=== PATIENT | female | born 1965 | race Caucasian/White ===

== ENCOUNTER 2017-10-19 17:15 | Emergency (ER) | payer MEDICARE ==
[~2017-10-19] VITALS: Ht 147.3 cm; Wt 63.0 kg
[2017-10-19 17:37] VITALS: BP 138/84; PULSE 99; RESP 20; TEMP 98; O2SAT 100
--- NOTE | 2017-10-19 18:46 | RADRPT ---
EXAM DATE/TIME: 10/19/2017 18:15 [place] COMPARISON: No previous studies available for comparison. INDICATIONS : Patient states chest pains. MEDICAL HISTORY : None. SURGICAL HISTORY : None. ENCOUNTER: Initial ACUITY: 1 day PAIN SCORE: 9/10 LOCATION: Bilateral chest FINDINGS: PA and lateral views of the chest demonstrate the lungs to be symmetrically aerated without evidence of mass, infiltrate or effusion. The cardiomediastinal contours are unremarkable. Osseous structure s are intact. CONCLUSION: No acute disease. Josafat Brewster MD on October 19, 2017 at 18:44 Board Certified Radiologist. This report was verified electronically.
[2017-10-19 18:57] LABS: AUTOMATED NEUTROPHIL # 5.2 TH/MM3 (1.8-7.7); BASOPHIL % 0.4 % (0.0-2.0); EOSINOPHIL # 0.2 TH/MM3 (0-0.4); EOSINOPHIL % 2.1 % (0.0-4.0); HEMATOCRIT 38.2 % (35.0-46.0); HEMOGLOBIN 12.7 GM/DL (11.6-15.3); LYMPH % 27.8 % (9.0-44.0); LYMPHOCYTE # 2.3 TH/MM3 (1.0-4.8); MEAN CELL VOLUME 82.9 FL (80.0-100.0); MEAN CORPUSCULAR HEMOGLOBIN 27.5 PG (27.0-34.0); MEAN CORPUSCULAR HGB CONC 33.2 % (32.0-36.0); MEAN PLATELET VOLUME 9.2 FL (7.0-11.0); MONO % 6.3 % (0.0-8.0); MONOCYTE # 0.5 TH/MM3 (0-0.9); NEUT % 63.4 % (16.0-70.0); PLATELET COUNT 296 TH/MM3 (150-450); RED CELL DISTRIBUTION WIDTH 14.7 % (11.6-17.2); WHITE BLOOD COUNT 8.2 TH/MM3 (4.0-11.0)
[2017-10-19 19:23] LABS: BICARBONATE 25.2 MEQ/L (21.0-32.0); CALCIUM 9.9 MG/DL (8.5-10.1); CREATININE 0.87 MG/DL (0.50-1.00)
[2017-10-19 22:00] VITALS: BP 127/84; PULSE 105; RESP 16; O2SAT 100
[2017-10-19] MEDS ORDERED: LISI10TA3 PO (22:29)
[2017-10-19] MEDS ORDERED: METF1000 PO (22:29)
[2017-10-19] MEDS ORDERED: GUAISYP4 PO (22:44)
[2017-10-19] MEDS ORDERED: RESP: IPRATROPIUM 0.5 MG/2.5 ML NEB NEB ONE (22:45)
[2017-10-19] MEDS ORDERED: AMOX250C3 PO (22:46)
--- NOTE | 2017-10-19 22:52 | PD ---
HPI Chief Complaint: Respiratory Symptoms Time Seen by Provider: 21:49 Travel History International Travel<30 days: No Contact w/Intl Traveler<30days: No Traveled to known affect area: No History of Present Illness HPI Patient is a 51-year-old female with hypertension and diabetes is coming in with 3 days of a cough dry cough feverish feeling. And now she is having upper back right-sided pain. It hurts worse with deep inspiration and coughing. She has not taken anything to alleviate her symptoms and she has not seen another doctor. She has no history of pulmonary issues no asthma no pneumonia history. She has no sick contacts she has not been checked for flu or strep she's had a sore throat dry cough and this pain in her right lung that radiates to her back per son patient speaks Tunisian. PFSH Past Medical History Diabetes: Yes Patient Takes Glucophage: Yes (METFORMIN) Hypertension: Yes Medical other: Yes ("VERTIGO") ?: Not LMP: 10/10/17 Social History Alcohol Use: No Tobacco Use: No Substance Use: No Allergies-Medications (Allergen,Severity, Reaction): Coded Allergies: No Known Allergies (Unverified , 10/19/17) Reported Meds & Prescriptions Reported Meds & Active Scripts Active Amoxicillin 250 Mg Cap 250 Mg PO TID Guaifenesin AC Liq (Guaifenesin-Codeine Liq) 100-10 Mg/5 Ml Syrp 10 Ml PO Q6H PRN Reported Metformin (Metformin HCl) 1,000 Mg Tab 1,000 Mg PO BIDPC Lisinopril 10 Mg Tab 10 Mg PO DAILY Review of Systems Except as stated in HPI: all other systems reviewed are Neg General / Constitutional: Positive: Fever, Chills Respiratory: Positive: Cough Physical Exam Narrative GENERAL: pt is awake alert non toxic appearing SKIN: Warm and dry. HEAD: Atraumatic. Normocephalic. EYES: Pupils equal and round. No scleral icterus. No injection or drainage. ENT: No nasal bleeding or discharge. Mucous membranes pink and moist. NECK: Trachea midline. No JVD. CARDIOVASCULAR: Regular rate and rhythm. RESPIRATORY: No accessory muscle use. Clear to auscultation. Breath sounds equal bilaterally. reproducible muscle tenderness to upper back GASTROINTESTINAL: Abdomen soft, non-tender, nondistended. Hepatic and splenic margins not palpable. MUSCULOSKELETAL: Extremities without clubbing, cyanosis, or edema. No obvious deformities. NEUROLOGICAL: Awake and alert. No obvious cranial nerve deficits. Motor grossly within normal limits. Five out of 5 muscle strength in the arms and legs. Normal speech. PSYCHIATRIC: Appropriate mood and affect; insight and judgment normal. Data Data Last Documented VS Vital Signs Date Time Temp Pulse Resp B/P (MAP) Pulse Ox O2 Delivery O2 Flow Rate FiO2 10/19/17 23:34 10/19/17 23:00 92 16 94 Room Air 10/19/17 17:37 98.0 Orders Orders Complete Blood Count With Diff (10/19/17 17:45) Basic Metabolic Panel (Bmp) (10/19/17 17:45) Chest, Pa & Lat (10/19/17 17:45) Electrocardiogram (10/19/17 17:45) Ipratropium Neb (Atrovent Neb) (10/19/17 22:45) Group A Rapid Strep Screen (10/19/17 22:33) Influenzae A/B Antigen (10/19/17 22:33) Strep Culture (Group A) (10/19/17 22:50) Ed Discharge Order (10/19/17 23:29) Labs Laboratory Tests Test 10/19/17 17:54 White Blood Count 8.2 TH/MM3 Red Blood Count 4.60 MIL/MM3 Hemoglobin 12.7 GM/DL Hematocrit 38.2 % Mean Corpuscular Volume 82.9 FL Mean Corpuscular Hemoglobin 27.5 PG Mean Corpuscular Hemoglobin Concent 33.2 % Red Cell Distribution Width 14.7 % Platelet Count 296 TH/MM3 Mean Platelet Volume 9.2 FL Neutrophils (%) (Auto) 63.4 % Lymphocytes (%) (Auto) 27.8 % Monocytes (%) (Auto) 6.3 % Eosinophils (%) (Auto) 2.1 % Basophils (%) (Auto) 0.4 % Neutrophils # (Auto) 5.2 TH/MM3 Lymphocytes # (Auto) 2.3 TH/MM3 Monocytes # (Auto) 0.5 TH/MM3 Eosinophils # (Auto) 0.2 TH/MM3 Basophils # (Auto) 0.0 TH/MM3 CBC Comment DIFF FINAL Differential Comment Blood Urea Nitrogen 11 MG/DL Creatinine 0.87 MG/DL Random Glucose 141 MG/DL Calcium Level 9.9 MG/DL Sodium Level 137 MEQ/L Potassium Level 4.3 MEQ/L Chloride Level 103 MEQ/L Carbon Dioxide Level 25.2 MEQ/L Anion Gap 9 MEQ/L Estimat Glomerular Filtration Rate 68 ML/MIN MDM Medical Decision Making Medical Screen Exam Complete: Yes Emergency Medical Condition: Yes Differential Diagnosis viral bronchitis vs PNA vs influenza or other causes of right chest pain cough, Narrative Course swabs negative and symptomatic treatment in ER pt feels much better safe for d.c with close follow up Rx for Amox and cough syrup Diagnosis Primary Impression: Cough Scripts Amoxicillin (Amoxicillin) 250 Mg Cap 250 MG PO TID for Infection, #21 CAP 0 Refills Prov: Randall Asif MD 10/19/17 Guaifenesin-Codeine Liq (Guaifenesin AC Liq) 100-10 Mg/5 Ml Syrp 10 ML PO Q6H Y for COUGH, #1 BOTTLE 0 Refills Prov: Randall Asif MD 10/19/17 Disposition: 01 DISCHARGE HOME Condition: Good Randall Asif MD Oct 19, 2017 22:52
[2017-10-19 23:00] VITALS: BP 132/77; PULSE 92; RESP 16; O2SAT 94
--- NOTE | 2017-10-20 12:22 | EKG ---
Date Performed: 10/19/2017 Time Performed: 17:51:13 PTAGE: 51 years EKG: Sinus rhythm NORMAL ECG INTERPRETATION BASED ON A DEFAULT AGE OF 39 YEARS NO PREVIOUS TRACING DOCTOR: Lio Lagunas Interpretating Date/Time 10/20/2017 12:18:23
== END 2017-10-19 23:39 | disposition home or self-care (01) ==
LOC: NEPE 17:15
DX: R05 Cough (principal); E11.9 Type 2 diabetes mellitus without complications; I10 Essential (primary) hypertension; Z79.84 Long term (current) use of oral hypoglycemic drugs
CPT/HCPCS: 71046; 80048; 85025; 87081; 87804; 87880; 93005; 94664; 99285; J7644

== ENCOUNTER 2018-01-20 15:57 | Observation (INO) ==
[2018-01-21] MEDS ORDERED: Insulin NovoLIN Regular Correctional Sugar Inj ONE (22:26)
[2018-01-21] MEDS ORDERED: Ketorolac Inj 30 MG/ML (IVP) Vial ONE (23:58)
[2018-01-22] MEDS ORDERED: Acetaminophen 325 MG Tablet PO PRN (02:59)
[2018-01-22] MEDS ORDERED: Dextrose 50% in Water 50 ML Vial IV.PUSH PRN (03:04)
--- NOTE | 2018-01-22 08:57 | P.PN ---
Subjective Interval history: Follow up for intractable headache. The patient reports overall feeling much better today. She states her headache has improved, although still present at the left temporal parietal region, described as a constant burning pain. She reports continued blurred vision. Denies any fevers/chills, nausea/vomiting, photophobia, chest pain, shortness of breath, or abdominal complaints. Physical Exam Vital signs: Vital Signs 01/22/18 03:57 01/22/18 08:04 01/22/18 08:12 Temperature 97.8 F 97.8 F Pulse Rate 83 71 Respiratory Rate 16 16 12 Blood Pressure 111/67 109/58 L Pulse Oximetry 98 98 Intake & Output 01/21/18 01/22/18 01/22/18 18:59 06:59 18:59 Weight 63.5 kg Narrative: GENERAL: Well-nourished, well-developed pleasant middle-aged female patient in [facility]. SKIN: Warm and dry. No rash. HEENT: Normocephalic. Atraumatic. Left temporal region nontender to palpation. Pupils equal and round. Mucous membranes pink and moist. NECK: Supple. Trachea midline. CARDIOVASCULAR: Regular rate and rhythm. No murmur appreciated. RESPIRATORY: No accessory muscle use. Clear to auscultation. Breath sounds equal bilaterally. GASTROINTESTINAL: Abdomen soft, non-tender, nondistended. Normoactive bowel sounds x4. MUSCULOSKELETAL: No obvious deformities. Extremities without clubbing, cyanosis , or edema. NEUROLOGICAL: Awake and alert. No obvious cranial nerve deficits. Motor grossly within normal limits. Moving all extremities spontaneously. Normal speech. PSYCHIATRIC: Appropriate mood and affect; insight and judgment normal. Results - Labs CBC & Chem 7: 01/20/18 12:11 01/20/18 12:11 Labs: Laboratory Results - last 24 hr 01/20/18 01/20/18 01/20/18 12:11 12:11 12:11 WBC 9.3 RBC 4.35 Hgb 12.1 Hct 37.0 MCV 85.1 MCH 27.9 MCHC 32.8 RDW 14.8 Plt Count 260 MPV 9.1 Neut % (Auto) 69.3 Lymph % (Auto) 20.3 [place] % (Auto) 8.2 H Eos % (Auto) 1.2 Baso % (Auto) 1.0 Neut # (Auto) 6.4 Lymph # (Auto) 1.9 [place] # (Auto) 0.8 Eos # (Auto) 0.1 Baso # (Auto) 0.1 CBC Comment DIFF FINAL ESR PT 10.1 INR 1.0 APTT 23.4 L Sodium 141 Potassium 4.8 Chloride 109 H Carbon Dioxide 24.5 Anion Gap 8 BUN 14 Creatinine 0.93 Estimated GFR 63 L Random Glucose 95 Calcium 9.4 Total Bilirubin 0.3 AST 20 ALT 27 Alkaline Phosphatase 77 Total Creatine Kinase 115 Troponin I LESS THAN 0.02 L C-Reactive Protein LESS THAN 0.29 Total Protein 7.6 Albumin 3.9 Vitamin B12 Free T4 TSH 3rd Generation HCG, Quant Urine Color Urine Turbidity Urine pH Ur Specific [place] Urine Protein Urine Glucose (UA) Urine Ketones Urine Occult Blood Urine Nitrite Urine Bilirubin Urine Urobilinogen Ur Leukocyte Esterase Urine RBC Urine WBC Urine WBC Clumps Urine Bacteria Micro UA Comment Rheumatoid Factor Scrn 01/20/18 01/20/18 01/20/18 12:11 12:25 21:09 WBC RBC Hgb Hct MCV MCH MCHC RDW Plt Count MPV Neut % (Auto) Lymph % (Auto) [place] % (Auto) Eos % (Auto) Baso % (Auto) Neut # (Auto) Lymph # (Auto) [place] # (Auto) Eos # (Auto) Baso # (Auto) CBC Comment ESR 31 H PT INR APTT Sodium Potassium Chloride Carbon Dioxide Anion Gap BUN Creatinine Estimated GFR Random Glucose Calcium Total Bilirubin AST ALT Alkaline Phosphatase Total Creatine Kinase Troponin I C-Reactive Protein 0.79 H Total Protein Albumin Vitamin B12 Free T4 TSH 3rd Generation HCG, Quant Urine Color YELLOW Urine Turbidity CLOUDY H Urine pH 7.0 Ur Specific [place] 1.015 Urine Protein 30 H Urine Glucose (UA) 50 Urine Ketones NEG Urine Occult Blood LARGE H Urine Nitrite NEG Urine Bilirubin NEG Urine Urobilinogen LESS THAN 2 Ur Leukocyte Esterase LARGE H Urine RBC Urine WBC Urine WBC Clumps FEW H Urine Bacteria MANY H Micro UA Comment CULTURE INDICATED Rheumatoid Factor Scrn 01/21/18 01/21/18 12:36 12:36 WBC RBC Hgb Hct MCV MCH MCHC RDW Plt Count MPV Neut % (Auto) Lymph % (Auto) [place] % (Auto) Eos % (Auto) Baso % (Auto) Neut # (Auto) Lymph # (Auto) [place] # (Auto) Eos # (Auto) Baso # (Auto) CBC Comment ESR PT INR APTT Sodium Potassium Chloride Carbon Dioxide Anion Gap BUN Creatinine Estimated GFR Random Glucose Calcium Total Bilirubin AST ALT Alkaline Phosphatase Total Creatine Kinase Troponin I C-Reactive Protein Total Protein Albumin Vitamin B12 422 Free T4 1.10 TSH 3rd Generation 0.575 HCG, Quant LESS THAN 1 Urine Color Urine Turbidity Urine pH Ur Specific [place] Urine Protein Urine Glucose (UA) Urine Ketones Urine Occult Blood Urine Nitrite Urine Bilirubin Urine Urobilinogen Ur Leukocyte Esterase Urine RBC Urine WBC Urine WBC Clumps Urine Bacteria Micro UA Comment Rheumatoid Factor Scrn NEGATIVE - Imaging Imaging: Last Impressions Head CT 01/20/18 1154 Signed Impressions: CONCLUSION: 1. No acute intracranial abnormality. Chest X-Ray 01/20/18 115 Signed Impressions: CONCLUSION: Negative for acute process Assessment and Plan - Plan 52-year-old female with history of hypertension and diabetes presents with intractable left-sided headache Left-sided headache: Possible temporal arteritis vs trigeminal neuralgia. ESR mildly elevated at 31, and CRP 0.79. -Head CT reviewed, no acute findings -Brain MRI reviewed and unremarkable -General surgery consulted, plans for temporal artery biopsy on Tuesday 01/23 -Continue prednisone 50 mg daily -Pain control with tylenol and IV toradol prn -Consult neurology, appreciate recommendations, possible trigeminal neuralgia variant Left eye vision impairment: acute. Possibly secondary to temporal arteritis versus diabetes versus nonspecific ocular process -consult ophthalmology, reportedly no coverage in house until Tuesday 01/23 Diabetes Mellitus: chronic -hold patient's metformin for now -monitor Accu-checks and cover with SSI Hypertension: chronic, BP fairly well controlled -continue patient's lisinopril 10mg daily -monitor BP, adjust antihypertensives as needed ESBL UTI: UA with UTI. Patient asymptomatic. WBC 9.3K. -Urine culture with E.Coli, ESBL positive -Discontinue IV Rocephin -Call placed to ID for antibiotic recommendations DVT Prophylaxis: teds/SCDs; avoid chemoprophylaxis with upcoming procedure Discharge Planning: Plan for temporal artery biopsy tomorrow. Discharge pending further clinical improvement and clearance from neurology. Also need recommendations on antibiotics for ESBL positive UTI.
[2018-01-22] MEDS ORDERED: carBAMazepine 100 MG Chewable Tablets PO SCH (09:00)
[2018-01-22] MEDS: Insulin NovoLIN Regular Correctional Sugar Inj SQ SCH ×4 (09:27→21:17)
--- NOTE | 2018-01-22 13:33 | P.PNNEU ---
Subjective Subjective Comments: pain better on cbz she rates about 6/10 now Active Medications: Active Medications Generic Name Dose Route Start Last Admin Trade Name Freq PRN Reason Stop Dose Admin Acetaminophen 650 mg 01/22/18 02:59 Tylenol PO Q6H PRN headache/fever/pain1-4 Carbamazepine 100 mg 01/22/18 09:00 01/22/18 09:16 Tegretol Chewable PO 100 mg Q12HR FEDERICA Administration Dextrose 50 ml 01/22/18 03:04 D50w Vial IV.PUSH UNSCH PRN PER HYPOGLYCEMIA PROTOCOL Glucagon 1 mg 01/22/18 03:04 Glucagon Inj OTHER PRN PRN for Hypoglycemia Protocol Ceftriaxone Sodium 1,000 mg/ 100 mls @ 200 mls/hr 01/22/18 16:00 Sodium Chloride IV.SIG Q24H FEDERICA Insulin Human Regular 0 units 01/22/18 08:00 01/22/18 09:27 Novolin R Supplemental Scale SQ 1 units ACHS FEDERICA Administration Protocol Ketorolac Tromethamine 15 mg 01/22/18 03:00 Toradol Inj IV.PUSH 01/26/18 09:59 Q6H PRN PAIN 5-10 Lisinopril 10 mg 01/22/18 09:00 Prinivil PO DAILY [facility] Prednisone 50 mg 01/22/18 09:00 01/22/18 09:16 Deltasone PO 50 mg DAILY FEDERICA Administration Allergies/Adverse Reactions: Allergies Allergy/AdvReac Type Severity Reaction Status Date / Time No Known Allergies Allergy Unverified 01/20/18 11:52 Physical Exam Vital signs: Vital Signs 01/22/18 03:57 01/22/18 08:04 01/22/18 08:12 Temperature 97.8 F 97.8 F Pulse Rate 83 71 Respiratory Rate 16 16 12 Blood Pressure 111/67 109/58 L Pulse Oximetry 98 98 01/22/18 12:00 Temperature 97.9 F Pulse Rate 100 H Respiratory Rate 18 Blood Pressure 120/68 Pulse Oximetry 96 Intake & Output 01/21/18 01/22/18 01/22/18 18:59 06:59 18:59 Weight 63.5 kg Narrative: alert nad temples nontender bilat Objective Laboratory Results - last 24 hr 01/20/18 01/20/18 01/20/18 12:11 12:11 12:11 WBC 9.3 RBC 4.35 Hgb 12.1 Hct 37.0 MCV 85.1 MCH 27.9 MCHC 32.8 RDW 14.8 Plt Count 260 MPV 9.1 Neut % (Auto) 69.3 Lymph % (Auto) 20.3 [place] % (Auto) 8.2 H Eos % (Auto) 1.2 Baso % (Auto) 1.0 Neut # (Auto) 6.4 Lymph # (Auto) 1.9 [place] # (Auto) 0.8 Eos # (Auto) 0.1 Baso # (Auto) 0.1 CBC Comment DIFF FINAL ESR PT 10.1 INR 1.0 APTT 23.4 L Sodium 141 Potassium 4.8 Chloride 109 H Carbon Dioxide 24.5 Anion Gap 8 BUN 14 Creatinine 0.93 Estimated GFR 63 L Random Glucose 95 Calcium 9.4 Total Bilirubin 0.3 AST 20 ALT 27 Alkaline Phosphatase 77 Total Creatine Kinase 115 Troponin I LESS THAN 0.02 L C-Reactive Protein LESS THAN 0.29 Total Protein 7.6 Albumin 3.9 Vitamin B12 Free T4 TSH 3rd Generation HCG, Quant Urine Color Urine Turbidity Urine pH Ur Specific [place] Urine Protein Urine Glucose (UA) Urine Ketones Urine Occult Blood Urine Nitrite Urine Bilirubin Urine Urobilinogen Ur Leukocyte Esterase Urine RBC Urine WBC Urine WBC Clumps Urine Bacteria Micro UA Comment Rheumatoid Factor Scrn 01/20/18 01/20/18 01/20/18 12:11 12:25 21:09 WBC RBC Hgb Hct MCV MCH MCHC RDW Plt Count MPV Neut % (Auto) Lymph % (Auto) [place] % (Auto) Eos % (Auto) Baso % (Auto) Neut # (Auto) Lymph # (Auto) [place] # (Auto) Eos # (Auto) Baso # (Auto) CBC Comment ESR 31 H PT INR APTT Sodium Potassium Chloride Carbon Dioxide Anion Gap BUN Creatinine Estimated GFR Random Glucose Calcium Total Bilirubin AST ALT Alkaline Phosphatase Total Creatine Kinase Troponin I C-Reactive Protein 0.79 H Total Protein Albumin Vitamin B12 Free T4 TSH 3rd Generation HCG, Quant Urine Color YELLOW Urine Turbidity CLOUDY H Urine pH 7.0 Ur Specific [place] 1.015 Urine Protein 30 H Urine Glucose (UA) 50 Urine Ketones NEG Urine Occult Blood LARGE H Urine Nitrite NEG Urine Bilirubin NEG Urine Urobilinogen LESS THAN 2 Ur Leukocyte Esterase LARGE H Urine RBC Urine WBC Urine WBC Clumps FEW H Urine Bacteria MANY H Micro UA Comment CULTURE INDICATED Rheumatoid Factor Scrn 01/21/18 01/21/18 12:36 12:36 WBC RBC Hgb Hct MCV MCH MCHC RDW Plt Count MPV Neut % (Auto) Lymph % (Auto) [place] % (Auto) Eos % (Auto) Baso % (Auto) Neut # (Auto) Lymph # (Auto) [place] # (Auto) Eos # (Auto) Baso # (Auto) CBC Comment ESR PT INR APTT Sodium Potassium Chloride Carbon Dioxide Anion Gap BUN Creatinine Estimated GFR Random Glucose Calcium Total Bilirubin AST ALT Alkaline Phosphatase Total Creatine Kinase Troponin I C-Reactive Protein Total Protein Albumin Vitamin B12 422 Free T4 1.10 TSH 3rd Generation 0.575 HCG, Quant LESS THAN 1 Urine Color Urine Turbidity Urine pH Ur Specific [place] Urine Protein Urine Glucose (UA) Urine Ketones Urine Occult Blood Urine Nitrite Urine Bilirubin Urine Urobilinogen Ur Leukocyte Esterase Urine RBC Urine WBC Urine WBC Clumps Urine Bacteria Micro UA Comment Rheumatoid Factor Scrn NEGATIVE Review/Management - Review/Management Plan: imp mri/a/a neg esr and crp neg labs ok i think this is [place] and can dc on tegretol 100mg 2 po bid and call office tomorrow
[2018-01-22] MEDS: Lisinopril 10 MG Tablet PO SCH (15:40)
[2018-01-22] MEDS: carBAMazepine 100 MG Chewable Tablets PO SCH ×2 (15:41→20:56)
--- NOTE | 2018-01-23 08:41 | P.PNNEU ---
Subjective Subjective Comments: No change head pain Active Medications: Active Medications Generic Name Dose Route Start Last Admin Trade Name Heidi PRN Reason Stop Dose Admin Acetaminophen 650 mg 01/22/18 02:59 Tylenol PO Q6H PRN headache/fever/pain1-4 Carbamazepine 200 mg 01/22/18 14:45 01/22/18 20:56 Tegretol Chewable PO 200 mg Q12HR FEDERICA Administration Dextrose 50 ml 01/22/18 03:04 D50w Vial IV.PUSH UNSCH PRN PER HYPOGLYCEMIA PROTOCOL Glucagon 1 mg 01/22/18 03:04 Glucagon Inj OTHER PRN PRN for Hypoglycemia Protocol Ceftriaxone Sodium 1,000 mg/ 100 mls @ 200 mls/hr 01/22/18 16:00 01/22/18 15: 40 Sodium Chloride IV.SIG 200 mls/hr Q24H FEDERICA Administration Insulin Human Regular 0 units 01/22/18 08:00 01/22/18 21:17 Novolin R Supplemental Scale SQ 5 units ACHS FEDERICA Administration Protocol Ketorolac Tromethamine 15 mg 01/22/18 03:00 Toradol Inj IV.PUSH 01/26/18 09:59 Q6H PRN PAIN 5-10 Lisinopril 10 mg 01/22/18 09:00 01/22/18 15:40 Prinivil PO 10 mg DAILY FEDERICA Administration Prednisone 50 mg 01/22/18 09:00 01/22/18 09:16 Deltasone PO 50 mg DAILY FEDERICA Administration Allergies/Adverse Reactions: Allergies Allergy/AdvReac Type Severity Reaction Status Date / Time No Known Allergies Allergy Unverified 01/20/18 11:52 Physical Exam Vital signs: Vital Signs 01/22/18 12:00 01/22/18 16:00 01/22/18 22:48 Temperature 97.9 F 99.0 F 98.4 F Pulse Rate 100 H 94 H 85 Respiratory Rate 18 14 18 Blood Pressure 120/68 124/73 139/81 Pulse Oximetry 96 97 98 01/23/18 01:35 01/23/18 04:32 01/23/18 08:33 Temperature 98.2 F 98.3 F 98.0 F Pulse Rate 84 88 Respiratory Rate 16 16 18 Blood Pressure 127/71 113/71 133/82 Pulse Oximetry 100 100 96 Intake & Output 07/01/18 07/02/18 07/02/18 18:59 06:59 18:59 Intake Total 1440 / 1440 Balance 1440 / 1440 Intake: Oral 1440 / 1440 Other: # Voids 4 Narrative: alert nad Objective Laboratory Results - last 24 hr 01/23/18 08:20 POC Glucose 109 Review/Management - Review/Management Plan: imp mri/a/a neg esr and crp neg labs ok i think this is [place] and can dc on tegretol 100mg 2 po bid and call office tomorrow is getting bx i think mae TA
[2018-01-23] MEDS: Insulin NovoLIN Regular Correctional Sugar Inj SQ SCH ×4 (09:29→22:09)
[2018-01-23] MEDS: Lisinopril 10 MG Tablet PO SCH (09:38)
[2018-01-23] MEDS: carBAMazepine 100 MG Chewable Tablets PO SCH ×2 (09:39→21:52)
[2018-01-23] MEDS: Ketorolac Inj 30 MG/ML (IVP) Vial IV.PUSH PRN ×2 (09:39→19:50)
[2018-01-23] MEDS ORDERED: Lidocaine PF 1% Inj 5 ML Syringe INFILTRATN ONE (12:00)
[2018-01-23] MEDS ORDERED: Chlorhexidine Gluconate 2% 1 Pack (2 Cloths) TOPICAL SCH (14:15)
[2018-01-23] MEDS ORDERED: Metoprolol Tartrate 25 MG Tablet PO SCH (14:15)
[2018-01-23] MEDS ORDERED: Lidocaine 1%/Epinephrine 1:100,000 Inj 30 ML Vial ONE (14:22)
[2018-01-23] MEDS ORDERED: Sodium Bicarbonate 8.4% Inj 50 MEQ/50 ML Syringe ONE (14:22)
[2018-01-23] MEDS ORDERED: Sodium Chlor 0.9% Inj 500 ML IV.SIG SCH (15:00)
[2018-01-23] MEDS ORDERED: fentaNYL Citrate Inj 100 MCG/2 ML Ampul ONE (16:26)
--- NOTE | 2018-01-23 16:46 | P.OP ---
- Preoperative Diagnosis (1) Giant cell arteritis - Postoperative Diagnosis (1) Giant cell arteritis Date of procedure: 01/23/18 Procedure: left temporal artery biopsy Anesthesia: GETA Surgeon: Ac Espinal MD Estimated blood loss (mL): 5 Pathology: other (temporal artery)
[2018-01-23] MEDS ORDERED: *morphine SULFATE 4 MG/ML PERIprocedure ONLY ONE ×3 (16:57→17:45)
--- NOTE | 2018-01-23 18:34 | P.PN ---
Subjective Interval history: Follow up for intractable headache. The patient is seen immediately upon returning from temporal artery biopsy. at bedside. The patient is drowsy and fall asleep during conversation. She complains of pain throughout the frontal and left parietal regions. She denies any dysuria although difficult to keep patient awake long enough to answer any further questions. Denies fevers/chills. Discussed with her , will plan to keep the patient tonight and discharge in am if stable. Physical Exam Vital signs: Vital Signs 01/22/18 22:48 01/23/18 01:35 01/23/18 04:32 Temperature 98.4 F 98.2 F 98.3 F Pulse Rate 85 84 88 Respiratory Rate 18 16 16 Blood Pressure 139/81 127/71 113/71 Pulse Oximetry 98 100 100 01/23/18 08:33 01/23/18 10:43 01/23/18 16:15 Temperature 98.0 F 97.9 F Pulse Rate 93 H 92 H Respiratory Rate 18 16 Blood Pressure 133/82 107/56 L Pulse Oximetry 96 96 01/23/18 16:30 01/23/18 16:45 01/23/18 17:00 Temperature 97.9 F 97.9 F 97.9 F Pulse Rate 82 80 88 Respiratory Rate 16 16 16 Blood Pressure 102/55 L 101/58 L 128/72 Pulse Oximetry 100 100 100 01/23/18 17:15 01/23/18 17:30 01/23/18 18:06 Temperature 97.9 F 97.9 F 97.6 F Pulse Rate 94 H 86 92 H Respiratory Rate 16 16 16 Blood Pressure 122/73 128/75 132/69 Pulse Oximetry 97 95 96 Intake & Output 01/22/18 01/23/18 01/23/18 18:59 06:59 18:59 Intake Total 1440 / 1440 350 / 350 Balance 1440 / 1440 350 / 350 Intake: IV 100 / 100 Rocephin Inj 1,000 MG In NS Inj 100 / 100 100 ML @ 200 mls/hr IV.SIG Q24H [facility] Rx#:[id number] Oral 1440 / 1440 Anesthesia Amount 250 / 250 Other: # Voids 4 Narrative: GENERAL: Well-nourished, well-developed pleasant middle-aged female patient in [facility]. SKIN: Warm and dry. No rash. Left temporal region with new surgical incision near hairline, no drainage, no surrounding erythema. HEENT: Normocephalic. Atraumatic. Pupils equal and round. Mucous membranes pink and moist. CARDIOVASCULAR: Regular rate and rhythm. No murmur appreciated. RESPIRATORY: No accessory muscle use. Clear to auscultation. Breath sounds equal bilaterally. GASTROINTESTINAL: Abdomen soft, non-tender, nondistended. Normoactive bowel sounds x4. MUSCULOSKELETAL: No obvious deformities. Extremities without clubbing, cyanosis , or edema. NEUROLOGICAL: Awake and alert. No obvious cranial nerve deficits. Motor grossly within normal limits. Moving all extremities spontaneously. Normal speech. PSYCHIATRIC: Appropriate mood and affect; insight and judgment normal. Results - Labs CBC & Chem 7: 01/20/18 12:11 01/20/18 12:11 Laboratory Results - last 24 hr 01/23/18 08:20 POC Glucose 109 Assessment and Plan - Plan 52-year-old female with history of hypertension and diabetes presents with intractable left-sided headache Left-sided headache: Possible temporal arteritis vs trigeminal neuralgia. ESR mildly elevated at 31, and CRP 0.79. -Head CT reviewed, no acute findings -Brain MRI reviewed and unremarkable -General surgery consulted, s/p temporal artery biopsy today 01/23 -Given prednisone 50mg daily however neurology thinks symptoms more related to trigeminal neuralgia, will discontinue steroids -Pain control with tylenol and IV toradol prn -Consult neurology, appreciate recommendations, possible trigeminal neuralgia variant, recommended tegretol 200mg bid, and cleared for discharge -patient assessed at 6:15pm after return from temporal artery biopsy, still very drowsy with headache; will plan to observe overnight and hopefully discharge in am, discussed with at bedside Left eye vision impairment: acute. Possibly secondary to temporal arteritis versus diabetes versus nonspecific ocular process -consulted ophthalmology, reportedly no coverage in house until Tuesday 01/23 -symptoms improving Diabetes Mellitus: chronic -hold patient's metformin for now -monitor Accu-checks and cover with SSI Hypertension: chronic, BP fairly well controlled -continue patient's lisinopril 10mg daily -monitor BP, adjust antihypertensives as needed ESBL UTI: UA with UTI. Patient asymptomatic. WBC 9.3K. -Urine culture with E.Coli, ESBL positive -Discontinued IV Rocephin -Curbside discussion with ID, if patient asymptomatic, no need for abx; however if patient with symptoms, recommends macrobid x1week -patient denying any urinary complaints at this time although very drowsy after procedure, will need to clarify if no symptoms upon discharge, however patient has remained afebrile throughout admission DVT Prophylaxis: teds/SCDs; avoid chemoprophylaxis with recent procedure Discharge Planning: Plan for discharge tomorrow morning if stable. Prescription for tegretol already printed and in chart. Patient denies any urinary symptoms for her ESBL positive urine culture, however please clarify with the patient prior to discharge when more awake. ID recommends starting Macrobid x1 week if any urinary symptoms.
[2018-01-24] MEDS: Ketorolac Inj 30 MG/ML (IVP) Vial IV.PUSH PRN (05:02)
--- NOTE | 2018-01-24 10:00 | MP ---
cc: Ac Espinal MD DATE OF OPERATION: 01/23/2018 PREOPERATIVE DIAGNOSIS: Rule out left temporal arteritis, giant cell arteritis. POSTOPERATIVE DIAGNOSIS: Rule out left temporal arteritis, giant cell arteritis. PROCEDURE PERFORMED: Left temporal artery biopsy. SURGEON: Dr. Ac Espinal CHEF CONCIERGE: See OR sheet. ANESTHESIA: GETA. ESTIMATED BLOOD LOSS: 5 mL DRAINS: None. COMPLICATIONS: None. WOUND CLASSIFICATION: Clean. SPECIMENS: Left temporal artery. FINDINGS: Good hemostasis. INDICATIONS: The patient is a 52-year-old female who presented to the emergency department with severe left-sided headache. States this had been going on for a couple of days and continued to get worse without any relief. She had further workup including CT scan to rule out any neurologic strokes. A decision was made for operative biopsy. The patient placed on high-dose steroids. DETAILS OF PROCEDURE: The patient was taken to the operating suite, placed in supine position. She was prepped and draped to the left forehead in the usual sterile fashion after induction of general endotracheal anesthesia. Brief timeout was done stating the correct patient, procedure and surgical site. We were all in agreement with this. Attention was directed to the left temporal area. The auricle of the ear was identified. Palpation of the left temporal artery pulse was done. Doppler signals were confirmed. A 2 cm incision was made in a vertical fashion with a 15 blade. Further dissection was done with electrocautery Bovie Dundy tip, dissection done to the artery. A hemostat and a Bernard scissors were used to incise the fascia above the artery. Artery was identified and dissected out and clamped. Once the artery was completely dissected with the length of biopsy specimen needed, a 3-0 silk tie was used proximally and distally to ligate the artery. Bernard scissors were used to transect both proximal and distal and the artery was sent for pathology. Hemostasis was obtained, irrigation done. The wound was closed with 4-0 Monocryl. Sterile dressings placed, including Dermabond. The patient tolerated the procedure well. No intraoperative complications. All operative counts were correct at the end of the procedure. The patient was extubated and taken stable to the PACU. MD JM Mclaughlin/KIRK , 09:02 AM , 09:25 AM
[2018-01-24] MEDS: carBAMazepine 100 MG Chewable Tablets PO SCH (10:07)
[2018-01-24] MEDS: Lisinopril 10 MG Tablet PO SCH (10:08)
[2018-01-24] MEDS: Insulin NovoLIN Regular Correctional Sugar Inj SQ SCH ×2 (10:08→13:43)
--- NOTE | 2018-01-24 12:07 | P.CON ---
History of Present Illness Service: Ophthalmology Reason for Consult: rule out temporal arteritis Primary Care Provider: UNKNOWN History of Present Illness: 52-year-old female presented with a left sided headache last week. She is currently being worked up for temporal arteritis. About 1 week ago, she was in [place] and started developing a left-sided constant headache. She is also complaining of blurriness in the left eye which started a few weeks ago. Says she went to a hospital down there, had a CT scan done which showed some mild hydrocephalus. Her headache has still persisted, so she decided to come to [place]. Reports that the pain travels down from her left taoism to her cheek. No pain on palpation to the left taoism, no jaw claudication, no pain when brushing hair, no malaise, no unintentional weight loss recently. ESR [address] Wallace (Neurology) thinks this probably is a trigeminal neuralgia variant. MRI brain normal. Temporal artery biopsy done 01/23 - results pending. Patient does not have any significant ocular history. Has not seen an stone trimmer in over a year. Medications and Allergies Active Medications: Active Medications Acetaminophen (Tylenol) 650 mg PO Q6H PRN PRN Reason: headache/fever/pain1-4 Carbamazepine (Tegretol Chewable) 200 mg PO Q12HR [facility] Last Admin: 01/24/18 10:07 Dose: 200 mg Chlorhexidine Gluconate (Chlorhexidine 2% Cloth) 3 pack TOPICAL SKIAGRAPHER [facility] Stop: 01/26/18 14:13 Dextrose (D50w Vial) 50 ml IV.PUSH UNSCH PRN PRN Reason: PER HYPOGLYCEMIA PROTOCOL Glucagon (Glucagon Inj) 1 mg OTHER PRN PRN PRN Reason: for Hypoglycemia Protocol Sodium Chloride (Ns Inj) 500 mls @ 30 mls/hr IV.SIG .Q10H [facility] Stop: 01/26/18 14:13 Lactated Ringer's (Lr 1000 Ml Inj) 1,000 mls @ 30 mls/hr IV.SIG .Q24H [facility] Stop: 01/26/18 14:13 Last Admin: 01/24/18 11:21 Dose: Not Given Insulin Human Regular (Novolin R Supplemental Scale) 0 units SQ ACHS [facility]; Protocol Last Admin: 01/24/18 10:08 Dose: 3 units Ketorolac Tromethamine (Toradol Inj) 15 mg IV.PUSH Q6H PRN PRN Reason: PAIN 5-10 Stop: 01/26/18 09:59 Last Admin: 01/24/18 05:02 Dose: 15 mg Lisinopril (Prinivil) 10 mg PO DAILY [facility] Last Admin: 01/24/18 10:08 Dose: 10 mg Metoprolol Tartrate (Lopressor) 25 mg PO SKIAGRAPHER [facility] Stop: 01/26/18 14:13 Miscellaneous Information ([facility] Information) 1 each OTHER UNSCH PRN PRN Reason: SEE LABEL COMMENTS Stop: 01/24/18 16:17 Povidone Iodine (Betadine 5% Antisepsis Kit) 1 applicatio EACH NARE SKIAGRAPHER [facility] Stop: 01/26/18 14:13 Allergies Allergy/AdvReac Type Severity Reaction Status Date / Time No Known Allergies Allergy Unverified 01/20/18 11:52 Home Medications Medication Instructions Recorded Confirmed Type aspirin 81 mg PO DAILY 01/21/18 01/21/18 History lisinopril 10 mg PO DAILY 01/21/18 01/21/18 History metformin 1,000 mg PO BIDPC 01/21/18 01/21/18 History Physical Exam Vital signs: Vital Signs 01/23/18 16:15 01/23/18 16:30 01/23/18 16:45 Temperature 97.9 F 97.9 F 97.9 F Pulse Rate 92 H 82 80 Respiratory Rate 16 16 16 Blood Pressure 107/56 L 102/55 L 101/58 L Pulse Oximetry 96 100 100 01/23/18 17:00 01/23/18 17:15 01/23/18 17:30 Temperature 97.9 F 97.9 F 97.9 F Pulse Rate 88 94 H 86 Respiratory Rate 16 16 16 Blood Pressure 128/72 122/73 128/75 Pulse Oximetry 100 97 95 01/23/18 18:06 01/23/18 18:10 01/23/18 18:18 Temperature 97.6 F 98.5 F Pulse Rate 92 H 92 H 96 H Respiratory Rate 16 22 Blood Pressure 132/69 128/70 Pulse Oximetry 96 96 97 01/23/18 21:24 01/24/18 00:00 01/24/18 02:00 Temperature 98.1 F 98.1 F Pulse Rate 83 87 78 Respiratory Rate 17 17 Blood Pressure 99/55 L 104/56 L Pulse Oximetry 99 96 01/24/18 04:00 01/24/18 08:00 Temperature 98.1 F 98.0 F Pulse Rate 86 83 Respiratory Rate 17 Blood Pressure 116/67 131/78 Pulse Oximetry 98 99 Intake & Output 01/23/18 01/24/18 01/24/18 18:59 06:59 18:59 Intake Total 350 / 350 Balance 350 / 350 Intake: IV 100 / 100 Rocephin Inj 1,000 MG In NS Inj 100 / 100 100 ML @ 200 mls/hr IV.SIG Q24H [facility] Rx#:[id number] Anesthesia Amount 250 / 250 Other: # Voids 4 2 - Detailed Eye Exam Comments: Va cc at near OD 20/20, OS 20/20 EOM full OU, no diplopia CVF full OU Pupils 2-1 no APD OU IOP normal to palpation OU Anterior exam OD - normal eyelid, C/S W&Q, K clear, AC deep, pupil round, lens clear OS - normal eyelid, C/S W&Q, K clear, AC deep, pupil round, lens clear Dilated exam OD - ON s/p/f, ves normal, vit clear, retina flat OS - ON s/p/f, ves normal, vit clear, retina flat Assessment and Plan - Assessment (1) Headache Code(s): R51 - Headache Status: Acute Plan: Does not look like temporal arteritis. ROS for GCA negative, ESR not impressive , normal dilated eye exam. Visual acuity 20/20 OU. Temporal artery biopsy will most likely be negative. Advised patient she may just need a new prescription for glasses. Can follow up as outpatient.
[2018-01-24 13:16] VITALS: BP 134/78; PULSE 99; TEMP 98.7
[2018-01-24 13:27] VITALS: RESP 18; O2SAT 97
--- NOTE | 2018-01-24 14:08 | P.DS ---
Date of admission: 01/20/18 15:58 Primary care physician: UNKNOWN Attending physician on discharge: Sarah Godfrey Anticipated date of discharge: 01/24/18 Brief History from admission: 52-year-old female being admitted for possible temporal arteritis. Patient reports being in her usual state of health until about 1 week ago where she was in [place] and she started developing a left-sided headache that would fluctuate in intensity and at its worse was a 10/10. Headache was otherwise constant. Reports having some nausea but no vomiting. This is reported with relatively constant blurriness in the left eye which is new, few weeks ago she had clear vision in both eyes. Denies having any photophobic or phonophobic nature to the headache. Took some Tylenol to no avail. Says she went to hospital down there, had a CT scan done which showed some mild hydrocephalus at best. Says she was prescribed some vitamin B12 pills and then sent home. Her headache has still persisted, returned from [place] yesterday thus decided come to our hospital today. Reports that the pain travels down from her nondenominational down to her cheek but not down to her jaw. Denies any pain with eating. Denies having any slurred speech or facial droop. In the emergency department patient had a head CT done here which was unremarkable otherwise. Had a sed rate done which was mildly elevated in the 30s. Patient had a questionable UA which was not a cath sample, started on Rocephin and given a Rudd pill. Says her pain is still substantial. DS: Diagnosis - Discharge Diagnosis (1) Giant cell arteritis Status: Acute (2) Trigeminal neuralgia Status: Acute DS: Medications - Discharge Medications Prescriptions: carbamazepine 200 mg PO Q12HR 30 Days #120 tab DS: Summary Hospital Course: Patient is a 52-year-old female who has a history of hypertension, DM 2 who her usual state of health until about 1 week ago where she was in [place] and she started developing a left-sided headache that would fluctuate in intensity and at its worse was a 10/10. CT of the head was done no acute abnormality seen. Brain MRI was done negative MRI of the brain with and without contrast. Neurology was consulted and suspect that she has trigeminal neuralgia versus temporal arthritis. General surgery was also consulted for biopsy. She was started on carbon meclizine 200 mg twice daily by neurology. Patient was also seen by ophthalmology for left eye vision impairment. No acute issues was noted and she would need to follow-up to see Dr. Kearney the photo tube assembler. Patient states that she is doing okay and symptoms has resolved. She denies any dysuria, frequency, urgency. She will not go home with antibiotics for now as per ID recommendation. Patient will follow up with the neurologist, photo tube assembler, and general surgery. Patient has met maximal benefits of hospitalization. Clinically stable for discharge. Patient will restart all her medications from home. - Time Spent with Patient Total time spent providing and/or coordinating discharge services: Less than 30 minutes Exam Vital signs: Vital Signs 01/23/18 16:15 01/23/18 16:30 01/23/18 16:45 Temperature 97.9 F 97.9 F 97.9 F Pulse Rate 92 H 82 80 Respiratory Rate 16 16 16 Blood Pressure 107/56 L 102/55 L 101/58 L Pulse Oximetry 96 100 100 01/23/18 17:00 01/23/18 17:15 01/23/18 17:30 Temperature 97.9 F 97.9 F 97.9 F Pulse Rate 88 94 H 86 Respiratory Rate 16 16 16 Blood Pressure 128/72 122/73 128/75 Pulse Oximetry 100 97 95 01/23/18 18:06 01/23/18 18:10 01/23/18 18:18 Temperature 97.6 F 98.5 F Pulse Rate 92 H 92 H 96 H Respiratory Rate 16 22 Blood Pressure 132/69 128/70 Pulse Oximetry 96 96 97 01/23/18 21:24 01/24/18 00:00 01/24/18 02:00 Temperature 98.1 F 98.1 F Pulse Rate 83 87 78 Respiratory Rate 17 17 Blood Pressure 99/55 L 104/56 L Pulse Oximetry 99 96 01/24/18 04:00 01/24/18 08:00 01/24/18 12:00 Temperature 98.1 F 98.0 F 98.7 F Pulse Rate 86 83 99 H Respiratory Rate 17 18 Blood Pressure 116/67 131/78 134/78 Pulse Oximetry 98 99 97 Intake & Output 01/23/1818 01/24/18 18:59 06:59 18:59 Intake Total 350 / 350 Balance 350 / 350 Intake: IV 100 / 100 Rocephin Inj 1,000 MG In NS Inj 100 / 100 100 ML @ 200 mls/hr IV.SIG Q24H [facility] Rx#:[id number] Anesthesia Amount 250 / 250 Other: # Voids 4 2 Narrative: GENERAL: This is a well-nourished, well-developed patient, in no apparent distress. SKIN: Warm and dry. HEENT: Normocephalic. Pupils equal round and reactive. Nose without bleeding. Airway patent. NECK: Trachea midline. No JVD. Supple. CARDIOVASCULAR: Regular rate and rhythm without murmurs, gallops, or rubs. RESPIRATORY: Clear to auscultation. Breath sounds equal bilaterally. No wheezes , rales, or rhonchi. GASTROINTESTINAL: Abdomen soft, non-tender, nondistended. Bowel Sounds normoactive x4. MUSCULOSKELETAL: Extremities without clubbing, cyanosis, or edema. NEUROLOGICAL: Awake and alert. Oriented to time, place, person. No focal neuro deficit. Moves all extremities. Normal speech. Results Procedures completed during hospitalization: Status post temporal artery biopsy 01/23/18 Pending studies at discharge: Pending at discharge 01/23/18 Surgical [PTH] Routine Labs on day of discharge: Labs from last 24 hours 01/24/18 01/24/18 13:28 07:37 POC Glucose 226 H 229 H Discharge Plan - Discharge Disposition Patient Disposition: 01 Discharge Home - Discharge Condition Condition: Stable - Discharge Order Discharge Orders: Discharge Order (Routine); Ordered 01/24/18 Ordered By: Carlos Lackey - Physicians Team Primary Care Provider: UNKNOWN, Attending Provider: Sarah Godfrey Other Providers: Surgeons,[facility] ; Ac Espinal MD ; Donavan Phan MD ; Zoya Kearney MD - Rxs /Orders / Referrals /Forms Prescriptions: New carbamazepine 100 mg Tablet,Chewable 200 mg PO Q12HR 30 Days Qty: 120 RF: 0 Continue aspirin 81 mg Tablet,Chewable 81 mg PO DAILY lisinopril 10 mg Tablet 10 mg PO DAILY metformin 1,000 mg Tablet 1,000 mg PO BIDPC Referrals: [facility] [Outside] - See Instructions Donavan Phan MD [Physician] - See Instructions (Follow up 1 week) Ac Espinal MD [Physician] - See Instructions (Follow up in 2 weeks) Kearney,Zoya, MD [OPHTHALMOLOGY] - See Instructions (1 week) UNKNOWN, [Primary Care Provider] - See Instructions - Post Discharge Care Plan Care Plan Goals: Your Health Problems: Goals to Promote Your Health: * To prevent worsening of your condition * To maintain your health at the optimal level Directions to Meet Your Goals: * Take your medications as prescribed * Follow your dietary instruction * Follow activity as directed * Keep your appointments as scheduled * Take your immunizations and boosters as scheduled * If your symptoms worsen call your PCP * If no PCP go to Urgent Care or Emergency Room Smoking is dangerous to your health. Avoid second hand smoke. You may reach the 24-hour crisis hotline for domestic abuse at .
--- NOTE | 2018-01-24 14:08 | P.PN ---
Subjective Interval history: Follow-up visit DM, headaches possible trigeminal neuralgia, HTN. Patient seen and examined today. Family at the bedside. Reports she is doing well. States that she was seen by fly worker and recommends follow-up in the outpatient setting. Denies pain and discomfort. Denies SOB/ dyspnea. Denies chest pain, palpitations, headaches, dizziness. Denies fevers, chills, n/v/d. Denies hematuria, frequency, urgency dysuria. Physical Exam Vital signs: Vital Signs 01/23/18 16:15 01/23/18 16:30 01/23/18 16:45 Temperature 97.9 F 97.9 F 97.9 F Pulse Rate 92 H 82 80 Respiratory Rate 16 16 16 Blood Pressure 107/56 L 102/55 L 101/58 L Pulse Oximetry 96 100 100 01/23/18 17:00 01/23/18 17:15 01/23/18 17:30 Temperature 97.9 F 97.9 F 97.9 F Pulse Rate 88 94 H 86 Respiratory Rate 16 16 16 Blood Pressure 128/72 122/73 128/75 Pulse Oximetry 100 97 95 01/23/18 18:06 01/23/18 18:10 01/23/18 18:18 Temperature 97.6 F 98.5 F Pulse Rate 92 H 92 H 96 H Respiratory Rate 16 22 Blood Pressure 132/69 128/70 Pulse Oximetry 96 96 97 01/23/18 21:24 01/24/18 00:00 01/24/18 02:00 Temperature 98.1 F 98.1 F Pulse Rate 83 87 78 Respiratory Rate 17 17 Blood Pressure 99/55 L 104/56 L Pulse Oximetry 99 96 01/24/18 04:00 01/24/18 08:00 01/24/18 12:00 Temperature 98.1 F 98.0 F 98.7 F Pulse Rate 86 83 99 H Respiratory Rate 17 18 Blood Pressure 116/67 131/78 134/78 Pulse Oximetry 98 99 97 Intake & Output 01/23/18 01/24/18 01/24/18 18:59 06:59 18:59 Intake Total 350 / 350 Balance 350 / 350 Intake: IV 100 / 100 Rocephin Inj 1,000 MG In NS Inj 100 / 100 100 ML @ 200 mls/hr IV.SIG Q24H [facility] Rx#:[id number] Anesthesia Amount 250 / 250 Other: # Voids 4 2 Narrative: GENERAL: This is a well-nourished, well-developed patient, in no apparent distress. SKIN: Warm and dry. HEENT: Normocephalic. Pupils equal round and reactive. Nose without bleeding. Airway patent. NECK: Trachea midline. No JVD. Supple. CARDIOVASCULAR: Regular rate and rhythm without murmurs, gallops, or rubs. RESPIRATORY: Clear to auscultation. Breath sounds equal bilaterally. No wheezes , rales, or rhonchi. GASTROINTESTINAL: Abdomen soft, non-tender, nondistended. Bowel Sounds normoactive x4.. MUSCULOSKELETAL: Extremities without clubbing, cyanosis, or edema. NEUROLOGICAL: Awake and alert. Oriented to time, place, person. Moves all extremities. Normal speech. Results - Labs CBC & Chem 7: 01/20/18 12:11 01/20/18 12:11 Laboratory Results - last 24 hr 01/24/18 01/24/18 07:37 13:28 POC Glucose 229 H 226 H Assessment and Plan - Plan 52-year-old female with history of hypertension and diabetes presents with intractable left-sided headache Left-sided headache: Possible temporal arteritis vs trigeminal neuralgia. ESR mildly elevated at 31, and CRP 0.79. -Head CT reviewed, no acute findings -Brain MRI reviewed and unremarkable -General surgery consulted, s/p temporal artery biopsy 01/23 -Given prednisone 50mg daily however neurology thinks symptoms more related to trigeminal neuralgia, will discontinue steroids -Pain control with tylenol and IV toradol prn -Consult neurology, appreciate recommendations, possible trigeminal neuralgia variant, recommended tegretol 200mg bid, and cleared for discharge -Symptoms have improved. Continue with Tegretol and outpatient follow-up with Dr. brannon little. Left eye vision impairment: acute. Possibly secondary to temporal arteritis versus diabetes versus nonspecific ocular process -consulted ophthalmology, recommends follow-up and outpatient. -symptoms improved Diabetes Mellitus: chronic -monitor Accu-checks and cover with SSI -May restart metformin at home. Hypertension: chronic, BP fairly well controlled -continue patient's lisinopril 10mg daily -monitor BP, adjust antihypertensives as needed ESBL UTI: UA with UTI. Patient asymptomatic. WBC 9.3K. -Urine culture with E.Coli, ESBL positive -Discontinued IV Rocephin -Curbside discussion with ID, recommends if patient asymptomatic, no need for abx; however if patient with symptoms, recommends macrobid x1week -Patient is a symptomatic. Will not discharge home with antibiotics. DVT Prophylaxis: teds/SCDs Code Status: Full code Discussed Condition With: Patient, family members, nursing Discharge Planning: Plan to discharge home today.
== END 2018-01-24 14:34 | disposition home or self-care (01) ==
LOC: NEPHCDU 15:57
PROVIDERS: ADMIT Hospitalist; ATTEND Hospitalist